=== PATIENT | male | born 1945 | race Caucasian/White ===

== ENCOUNTER 2017-10-02 05:33 | Day surgery (SDC) | payer OTHER ==
[~2017-10-02] VITALS: Ht 180.3 cm; Wt 92.0 kg
[~2017-10-02 05:33] MED LIST: ACYC200 PO; ALBU90OI61 INH; AMLO5 PO; ASPI81CH PO; ATEN100 PO; BUDE10.22 INH; FURO20 PO; K-Dur20 MEQ PO; SIMV40 PO
[2017-10-02] MEDS ORDERED: CLOP75 PO (08:39)
[2017-10-02] MEDS ORDERED: SPIR25 PO (08:39)
[2017-10-02] MEDS ORDERED: METO50ER PO (08:40)
[2017-10-02] MEDS ORDERED: LOSA50 PO (08:41)
== END 2017-10-02 14:45 | disposition home or self-care (01) ==
LOC: MHTC 05:33
DX: I25.118 Atherosclerotic heart disease of native coronary artery with other forms of angina pectoris (principal); I25.728 Atherosclerosis of autologous artery coronary artery bypass graft(s) with other forms of angina pectoris; I25.718 Atherosclerosis of autologous vein coronary artery bypass graft(s) with other forms of angina pectoris; I25.5 Ischemic cardiomyopathy; E78.00 Pure hypercholesterolemia, unspecified; I10 Essential (primary) hypertension; J98.4 Other disorders of lung; E78.5 Hyperlipidemia, unspecified; G47.33 Obstructive sleep apnea (adult) (pediatric); E66.01 Morbid (severe) obesity due to excess calories; J44.9 Chronic obstructive pulmonary disease, unspecified; Z87.891 Personal history of nicotine dependence
CPT/HCPCS: 93459; 99152; 99153; C1769; C1887; C1894; J1644; J2250; J3010; J7030; Q9967